=== PATIENT | male | born 1985 | race Caucasian/White ===

== ENCOUNTER 2017-01-29 11:23 | Emergency (ER) | payer BC, OTHER ==
[2017-01-29 11:34] VITALS: TEMP 99; BMI 24.4
--- NOTE | 2017-01-29 11:34 | PDOC ---
History of Present Illness <PattieRola - Last Filed: 01/29/17 14:33> - General History Source: Patient Exam Limitations: No Limitations - History of Present Illness Presenting Symptoms: Chest Pain Timing/Duration: reports: constant Severity/Quality: reports: mild <CalvinShlomo - Last Filed: 01/29/17 14:38> - General Chief Complaint: Chest Pain Stated Complaint: CHEST PAIN Time Seen by Provider: 01/29/17 11:25 - History of Present Illness Initial Comments: 01/29/17 11:30 31 y/o male with no medical history, smoker, presents to ER with right sided chest pain, worse with breathing and movement. No radiation to back or arm or neck. No fall or trauma. Took a Prilosec since he thought pain developed after dinner. No SOB. No N/V/D/C. No diaphoresis. (Shlomo Simpson) Past History <Eusebio Blankenshipanda - Last Filed: 01/29/17 14:33> - Past Medical History Asthma: No COPD: No Diabetes: No GI Disorders: Yes (SIGMOID DIVERTICULOSIS (CT SCAN 09/18/12)) HTN: No - Suicide/Smoking/Psychosocial Hx Smoking Status: Yes Smoking History: Current every day smoker Number of Cigarettes Smoked Daily: 20 Information on smoking cessation initiated: Yes 'Breaking Loose' booklet given: 01/29/17 Hx Alcohol Use: No Drug/Substance Use Hx: No Substance Use Type: None <CalvinShlomo - Last Filed: 01/29/17 14:38> - Past Medical History Allergies/Adverse Reactions: Allergies Allergy/AdvReac Type Severity Reaction Status Date / Time No Known Allergies Allergy Verified 01/29/17 11:25 Home Medications: Ambulatory Orders No Home Medications 0 dose .ROUTE UTDICT 09/18/12 Review of Systems - Review of Systems Able to Perform ROS?: Yes Is the patient limited Romanian proficient: No Constitutional: No: Diaphoresis, Fever Respiratory: No: Cough, Shortness of Breath Cardiac (ROS): Yes: Chest Pain ABD/GI: No: Abdominal Distended, Nausea, Vomiting Integumentary: No: Bruising, Erythema All Other Systems: Reviewed and Negative <Shlomo Simpson - Last Filed: 01/29/17 14:38> *Physical Exam - Physical Exam General Appearance: Yes: Nourished, Appropriately Dressed. No: Apparent Distress HEENT: positive: EOMI, CARLINE, Normal ENT Inspection, Pharynx Normal Neck: positive: Trachea midline, Normal Thyroid, Supple. negative: Tender, Rigid, Carotid bruit Respiratory/Chest: positive: Chest Tender (mild tenderness to right madisyn eof chest on palpation), Normal Breath Sounds. negative: Lungs Clear (occoasional expiratory wheeze noted), Respiratory Distress, Accessory Muscle Use Cardiovascular: positive: Regular Rhythm, Regular Rate, S1, S2. negative: Edema , JVD, Murmur Vascular Pulses: Femoral (R): 4+, Femoral (L): 4+, Carotid (R): 4+, Carotid (L) : 4+, Dorsalis-Pedis (R): 4+, Doralis-Pedis (L): 4+ Gastrointestinal/Abdominal: positive: Normal Bowel Sounds, Flat, Soft, Other ( no mid epigastric tenderness noted). negative: Tender, Organomegaly, Pulsatile Mass Lymphatic: negative: Adenopathy, Tenderness, Other Musculoskeletal: positive: Normal Inspection. negative: CVA Tenderness Extremity: positive: Normal Capillary Refill, Normal Inspection, Normal Range of Motion. negative: Tender, Calf Tenderness Integumentary: positive: Normal Color, Dry, Warm Neurologic: positive: lpn per diem II-XII NML intact, Fully Oriented, Alert, Normal Mood/ Affect, Normal Response, Motor Strength 5/5 <Shlomo Simpson - Last Filed: 01/29/17 14:38> - Vital Signs Last Vital Signs Temp Pulse Resp BP Pulse Ox 99 F 74 15 116/62 100 01/29/17 11:24 01/29/17 14:15 01/29/17 14:15 01/29/17 14:15 01/29/17 14:15 Heart Score/ECG Review <Rola Blankenship - Last Filed: 01/29/17 14:33> - History History: Slightly suspicious - Electrocardiogram EKG: Normal - Age Age: </= 45 - Risk Factors Risk Factors Heart Score: No Hx Hypercholesterolemia, No Hx Hypertension, No Hx Diabetes, Yes Smoking History, No Positive family hx of cardiac disease, No Hx Obesity Based on the list above the patient has:: 1-2 risk factors - ECG Intrepretation Rhythm: Regular Rhythm - Jo[place] Joppa: Normal - ST and T Early Repolarization: Yes <Shlomo Simpson - Last Filed: 01/29/17 14:38> - ECG Intrepretation Comment:: 01/29/17 11:45 rate [address] vs ST segment elevations in lateral leads V3-V6 No old EKGs to compare to (Shlomo Simpson) ED Treatment Course - LABORATORY CBC & Chemistry Diagram: 01/29/17 11:50 01/29/17 11:50 <Rola Blankenship - Last Filed: 01/29/17 14:33> - LABORATORY CBC & Chemistry Diagram: 01/29/17 11:50 01/29/17 11:50 - RADIOLOGY Chest X-Ray Result: No Infiltrates <Shlomo Simpson - Last Filed: 01/29/17 14:38> - ADDITIONAL ORDERS Additional order review: Laboratory Results 01/29/17 01/29/17 01/29/17 11:50 11:50 11:50 D-Dimer 709 H Sodium 137 Potassium 4.4 Chloride 107 Carbon Dioxide 27 Anion Gap 3 L BUN 18 Creatinine 0.8 Creat Clearance w eGFR > 60 Random Glucose 95 Calcium 8.8 Total Bilirubin 0.4 D AST 16 ALT 14 Alkaline Phosphatase 55 Troponin I < 0.03 L Total Protein 6.5 Albumin 4.1 01/29/17 11:50 RBC 4.86 MCV 92.8 MCHC 34.2 RDW 12.5 MPV 7.3 L Neutrophils % 57.2 Lymphocytes % 28.8 Monocytes % 11.8 H Eosinophils % 0.8 Basophils % 1.4 01/29/17 11:33 Pt with chest pain worse with inspiration with obtain cardiac work up Pain is reproducible (Shlomo Simpson) - RADIOLOGY Radiology Studies Ordered: Category Date Time Status CHEST CTA [CT] Stat CT Scan 01/29/17 13:15 Completed CHEST X-RAY PORTABLE* [RAD] Stat Radiology 01/29/17 11:35 Completed CXR NAD (Shlomo Simpson) Radiograph Interpretation: EXAM#: TYPE/EXAM: RESULT: [id number] CT/CHEST CTA Chest pain. Rule out PE. CT scan of the chest following intravenous contrast. A post intravenous contrast CT angiogram of the chest was performed utilizing pulmonary embolus protocol. Coronal/ sagittal reconstruction images were obtained. 100 cc of Omnipaque 350 was intravenously injected Compared to prior chest x-ray dated 01/29/2017 No gross filling defect is seen within the main pulmonary artery and its proximal branches. The thoracic and visualized portion of the upper abdominal aorta is normally enhanced without evidence of aneurysmal dilatation or dissection. The heart is within normal limits in size. No gross mediastinal or hilar enlarged lymph nodes are identified. There is a 3 mm nodule in the right upper lobe on axial image 25. The rest of the lung is clear. Right lower lobe pulmonary nodule measuring 4.5 mm, laterally on axial image 55 on the questionable juxtapleural nodule is seen posterior laterally on axial image 58 measuring 3.5 mm. There is another 3 mm pulmonary nodule in the left lower lobe on axial image 68. Pleural- based nodule in the right lower lobe, posteriorly and medially measuring 5 mm, axial image 52. Pleural-based nodule in the left lateral costophrenic angle on axial image 83 No focal infiltrates are identified. No pneumothorax or pleural effusion is seen, bilaterally. Included portion of the upper abdomen appears unremarkable with heterogeneous enhancement of the spleen likely due to rapid intravenous contrast injection. Visualized osseous structures appear intact IMPRESSION: There is no evidence of a pulmonary embolus within the main pulmonary artery and its proximal branches, bilaterally. Scattered tiny bilateral parenchymal and pleural-based lung nodules with the largest measuring 5 mm, which are nonspecific and likely post inflammatory. Clinical correlation is recommended to determine further evaluation. No follow-up is recommended for a low-risk patient according to the 2017 Fleischner Society recommendations. Correlate clinically and if needed a follow-up CT scan of the chest within 6 months could be obtained to assess for stability. Reported By: Tone Choi MD 01/29/17 1430 (Rola Blankenship) Progress Note <Rola Blankenship - Last Filed: 01/29/17 14:33> <Shlomo Simpson - Last Filed: 01/29/17 14:38> - Progress Note Progress Note: Pt is feeling better, reproducible chest pain CT negative, Troponin negative Non specific nodules lung will need follow up If worsen return to ER, pt is in agreement with plan (Shlomo Simpson) *DC/Admit/Observation/Transfer <Rola Blankenship - Last Filed: 01/29/17 14:33> - Discharge Dispostion Admit: No <Shlomo Simpson - Last Filed: 01/29/17 14:38> Diagnosis at time of Disposition: Costochondritis, acute, Multiple lung nodules on CT - Discharge Dispostion Disposition: HOME Condition at time of disposition: Good - Referrals Referrals: Jacob Lopes [Primary Care Provider] - - Patient Instructions Printed Discharge Instructions: Smoking Cessation, DI for Atypical Chest Pain, DI for Costochondritis Additional Instructions: Fluids, rest, Motrin Avoid smoking Follow up chest CT in 6 months for non specific lung nodules If worsen return to ER - Post Discharge Activity - Attestations Scribe Attestion: 01/29/17 14:33 Documentation prepared by Rola Blankenship, acting as certified medical technician for Shlomo Simpson MD (Rola Blankenship)
[2017-01-29 11:59] LABS: BASOPHIL 1.4 % (0-2.0); EOSINOPHIL 0.8 % (0-4.5); MCH 31.7 pg (25.7-33.7); MCHC 34.2 g/dl (32.0-35.9); MEAN CELL VOLUME 92.8 fl (80-96); MEAN PLT VOLUME 7.3 fl (7.5-11.1); NEUTROPHILS 57.2 % (42.8-82.8); PLATELET COUNT 226 K/MM3 (134-434); RDW 12.5 % (11.9-15.9); WHITE BLOOD COUNT 5.7 K/mm3 (4.0-10.8)
[2017-01-29 12:15] LABS: ALBUMIN 4.1 g/dl (3.5-5.0); ALK PHOS 55 U/L (32-92); ANION GAP 3 (8-16); BILIRUBIN,TOTAL 0.4 mg/dl (0.2-1.0); CALCIUM 8.8 mg/dl (8.4-10.2); CO2 27 mmol/L (22-28); CREATININE 0.8 mg/dl (0.6-1.3); GLUCOSE,RANDOM 95 mg/dl (74-106); SGOT/AST 16 U/L (10-42); SGPT/ALT 14 U/L (10-40); TOT PROT 6.5 g/dl (6.4-8.3)
[2017-01-29] MEDS ORDERED: SODIUM CHLORIDE 1,000 ML IV SCH (13:30)
[2017-01-29 14:24] VITALS: BP 116/62
[2017-01-29 14:38] VITALS: PULSE 70
--- NOTE | 2017-01-30 08:31 | EKG ---
Test Reason : Blood Pressure : / mmHG Vent. Rate : 064 BPM Atrial Rate : 064 BPM P-R Int : 144 ms QRS Dur : 086 ms QT Int : 404 ms P-R-T Axes : 056 072 047 degrees QTc Int : 416 ms NORMAL SINUS RHYTHM WITH SINUS ARRHYTHMIA EARLY REPOLARIZATION NORMAL ECG NO PREVIOUS ECGS AVAILABLE Confirmed by TONYA HOUSTON MD ([id number]) on 01/30/2017 8:30:58 AM Referred By: SANDY COBB Confirmed By:TONYA HOUSTON MD
== END 2017-01-29 14:45 | disposition home or self-care (01) ==
LOC: FER 11:23
DX: M94.0 Chondrocostal junction syndrome [Tietze] (principal); R91.8 Other nonspecific abnormal finding of lung field; F17.210 Nicotine dependence, cigarettes, uncomplicated
CPT/HCPCS: 36415; 71010-TC; 71275-TC; 80053; 84484; 85025; 85379; 93005; 99284-25